=== PATIENT | male | born 1960 | race Caucasian/White ===

== ENCOUNTER 2024-01-26 12:18 | Day surgery (SDC) | payer MEDICAID ==
[~2024-01-26] VITALS: Ht 167.6 cm; Wt 72.6 kg
[2024-01-26] MEDS ORDERED: fentaNYL citrate 0.05 MG/ML VIAL ONE (12:47)
[2024-01-26] MEDS ORDERED: MIDAZOLAM 5 MG/5 ML VIAL ONE (12:47)
[2024-01-26] MEDS: MIDAZOLAM 2 MG/2 ML VIAL IVP ONE (12:54)
[2024-01-26] MEDS: fentaNYL citrate 0.05 MG/ML VIAL IVP ONE (12:55)
== END 2024-01-26 15:00 | disposition home or self-care (01) ==
LOC: MDS 12:18 → MMU 12:19 → MDS 15:00
PROVIDERS: ATTEND Internal Medicine Gastroenterology
DX: Z12.11 Encounter for screening for malignant neoplasm of colon (principal); K22.2 Esophageal obstruction; K20.90 Esophagitis, unspecified without bleeding; K57.30 Diverticulosis of large intestine without perforation or abscess without bleeding; R13.10 Dysphagia, unspecified; K44.9 Diaphragmatic hernia without obstruction or gangrene; E11.9 Type 2 diabetes mellitus without complications; I10 Essential (primary) hypertension; Z90.49 Acquired absence of other specified parts of digestive tract; Z79.899 Other long term (current) drug therapy
CPT/HCPCS: 36415; 43239; 45378; 82948; 86677; J2250; J3010